=== PATIENT | female | born 1995 | race Caucasian/White ===

== ENCOUNTER 2016-10-29 00:23 | Emergency (ER) | payer MEDICAID ==
[2016-10-29 00:24] VITALS: BMI 24.6
[2016-10-29 01:01] VITALS: BP 122/77; PULSE 87; RESP 16; TEMP 99; O2SAT 98
--- NOTE | 2016-10-29 01:48 | ED PDOC ---
HPI: General Adult Time Seen by Provider: 10/29/16 01:00 Chief Complaint (Nursing): Flu-like Symptoms Chief Complaint (Provider): throat pain History Per: Patient History/Exam Limitations: no limitations Onset/Duration Of Symptoms: Days Have you had recent travel within the past 21 days to any of the following countries: [place], [place], [place] or [place]?: No Current Symptoms Are (Timing): Still Present Additional Complaint(s): 21yo female with no PMHx presents to the ED with c/o throat pain x 5 days. Patient reports having associated cough . States she had a fever 3 days ago but none at present. Denies n/v/d or any other medical complaints. Past Medical History Reviewed: Historical Data, Nursing Documentation, Vital Signs Vital Signs: Last Vital Signs Temp 99.0 F 10/29/16 00:58 Pulse 87 10/29/16 00:58 Resp 16 10/29/16 00:58 BP 122/77 10/29/16 00:58 Pulse Ox 98 10/29/16 02:35 - Medical History PMH: No Chronic Diseases - Surgical History Surgical History: No Surg Hx - Family History Family History: States: No Known Family Hx - Social History Current smoker - smoking cessation education provided: No Alcohol: Occasional Drugs: Denies - Home Medications Home Medications: Ambulatory Orders Medication Instructions Recorded Amoxicillin 500 mg PO BID #14 tablet 10/29/16 - Allergies Allergies/Adverse Reactions: Allergies Allergy/AdvReac Type Severity Reaction Status Date / Time No Known Allergies Allergy Verified 01/23/15 10:26 Review of Systems ROS Statement: Except As Marked, All Systems Reviewed And Found Negative Constitutional: Positive for: Fever (none at present ) ENT: Positive for: Throat Pain Respiratory: Positive for: Cough Gastrointestinal: Negative for: Nausea, Vomiting, Diarrhea Musculoskeletal: Positive for: Back Pain Physical Exam - Reviewed Nursing Documentation Reviewed: Yes Vital Signs Reviewed: Yes - Physical Exam Appears: Positive for: Well, No Acute Distress Head Exam: Positive for: ATRAUMATIC, NORMAL INSPECTION, NORMOCEPHALIC Skin: Positive for: Normal Color, Warm, Dry Eye Exam: Positive for: Normal appearance, EOMI, PERRL ENT: Positive for: Tonsillar Exudate (right sided ). Negative for: Pharyngeal Erythema, Tonsillar Swelling Neck: Positive for: Normal, Painless ROM, Supple Cardiovascular/Chest: Positive for: Regular Rate, Rhythm. Negative for: Murmur , Tachycardia Respiratory: Positive for: Normal Breath Sounds. Negative for: Wheezing, Respiratory Distress Gastrointestinal/Abdominal: Positive for: Normal Exam, Soft. Negative for: Tenderness Back: Positive for: Normal Inspection. Negative for: L CVA Tenderness, R CVA Tenderness Extremity: Positive for: Normal ROM. Negative for: Deformity, Swelling Neurologic/Psych: Positive for: Alert, Oriented - ECG O2 Sat by Pulse Oximetry: 98 Pulse Ox Interpretation: Normal (RA) Medical Decision Making Medical Decision Makin: Impression: throat pain, r/o strep vs. flu Plan: Motrin 600mg PO flu and strep swabs reassess 0230: Flu and strep swabs are negative. Patient is stable for discharge with diagnosis of viral illness. Advised Motrin for pain. Instructed patient to f/u w / her PCP in 1-2 days and return to the ED with any worsening or concerning symptoms. Patient given Rx for antibiotics in case symptoms worsen. Scribe Attestation: Documented by Megha Stock acting as a scribe for Jeanette Jones MD. Provider Scribe Attestation: All medical record entries made by the Scribe were at my direction and personally dictated by me. I have reviewed the chart and agree that the record accurately reflects my personal performance of the history, physical exam, medical decision making, and the department course for this patient. I have also personally directed, reviewed, and agree with the discharge instructions and disposition. Disposition - Clinical Impression Clinical Impression: Viral illness - Patient ED Disposition Is Patient to be Admitted: No Counseled Patient/Family Regarding: Studies Performed, Diagnosis, Need For Followup - Disposition Referrals: Nathaniel Manzano MD [Primary Care Provider] - Disposition: Routine/Home Disposition Time: 02:00 Condition: IMPROVED Additional Instructions: follow up with your primary doctor in 1-2 days take motrin for pain return to the ED with any worsening or concerning symptoms Prescriptions: Amoxicillin 500 mg PO BID #14 tablet Instructions: Viral Syndrome (ED)
== END 2016-10-29 02:38 | disposition home or self-care (01) ==
LOC: H.ER 00:23
DX: B34.9 Viral infection, unspecified (principal)

== ENCOUNTER 2017-12-03 09:42 | Emergency (ER) | payer MEDICAID, OTHER ==
[2017-12-03 09:52] VITALS: BMI 22.2
[2017-12-03 09:53] VITALS: O2SAT 100
[2017-12-03 10:38] VITALS: PULSE 83
[2017-12-03] MEDS ORDERED: Famotidine 20mg/50ml 20 MG/50 ML BAG IVPB ONE ×2 (10:45→11:05)
[2017-12-03 11:06] LABS: BASO % 0.5 % (0.0-2.0); EOS % 0.5 % (0.0-4.0); HEMOGLOBIN 14.1 g/dL (12.0-16.0); LYMPH # 1.6 K/uL (1.0-4.3); LYMPH % 18.5 % (20.0-40.0); MEAN CELL VOLUME 83.4 fl (81.0-99.0); MEAN CORPUSCULAR HGB CONC 33.6 g/dL (33.0-37.0); MEAN PLATELET VOLUME 9.2 fl (7.2-11.7); MONO # 0.5 K/uL (0.0-0.8); MONO % 6.3 % (0.0-10.0); NEUT # 6.4 K/uL (1.8-7.0); NEUT % 74.2 % (50.0-75.0); NRBC % 0.1 % (0.0-0.0); RBC 5.04 Mil/uL (3.80-5.20); WHITE BLOOD COUNT 8.6 K/uL (4.8-10.8)
[2017-12-03 11:18] LABS: ALB/GLOB RATIO 1.5 (1.0-2.1); ALBUMIN 4.8 g/dL (3.5-5.0); ALT/SGPT 16 U/L (9-52); AST/SGOT 23 U/L (14-36); BLOOD UREA NITROGEN 11 mg/dl (7-17); CALCIUM 9.8 mg/dL (8.4-10.2); GFR AFRICAN-AMERICAN > 60; GFR NON-AFRICAN AMERICAN > 60; LIPASE 113 U/L (23-300)
--- NOTE | 2017-12-03 11:54 | ED PDOC ---
HPI: Abdomen Time Seen by Provider: 12/03/17 10:07 Chief Complaint (Nursing): Abdominal Pain Chief Complaint (Provider): abdominal pain History Per: Patient History/Exam Limitations: no limitations Onset/Duration Of Symptoms: Days (x3), Waxing/Waning Outside of [place] travel?: No Current Symptoms Are (Timing): Still Present Quality Of Discomfort: "Pain" Associated Symptoms: Chills, Nausea. denies: Fever, Vomiting, Diarrhea, Other ( SOB) Additional Complaint(s): Isela Jimenez is a 22 year old female, with no significant past medical history, who presents to the emergency department complaining of abdominal pain associated with nausea and chills onset for x3 days and chest pain onset since yesterday. Patient states abdominal pain waxes and wanes, and has currently resolved. However, patient states she developed left sided chest pain right after having lunch yesterday. She reports today pain has moved to the center. She denies similar chest pain in the past. She is not taking control and denies recent travel. She denies any fever, headache, dizziness, vomit, diarrhea , shortness of breath, cough or heavy lifting. No further medical complaints. PMD: Nathaniel Sanchez Past Medical History Reviewed: Historical Data, Nursing Documentation, Vital Signs Vital Signs: Last Vital Signs Temp 98.6 F 12/03/17 09:52 Pulse 83 12/03/17 10:05 Resp 21 12/03/17 10:05 BP 115/77 12/03/17 09:52 Pulse Ox 100 12/03/17 13:17 - Medical History PMH: No Chronic Diseases - Surgical History Surgical History: No Surg Hx - Family History Family History: States: Unknown Family Hx - Social History Current smoker - smoking cessation education provided: No Alcohol: None Drugs: Denies - Home Medications Home Medications: Ambulatory Orders Medication Instructions Recorded Famotidine [Pepcid] 20 mg PO DAILY #14 tab 12/03/17 - Allergies Allergies/Adverse Reactions: Allergies Allergy/AdvReac Type Severity Reaction Status Date / Time No Known Allergies Allergy Verified 01/23/15 10:26 Review of Systems ROS Statement: Except As Marked, All Systems Reviewed And Found Negative Constitutional: Positive for: Chills. Negative for: Fever Cardiovascular: Positive for: Chest Pain Respiratory: Negative for: Cough, Shortness of Breath Gastrointestinal: Positive for: Nausea, Abdominal Pain (resolved). Negative for : Vomiting, Diarrhea Physical Exam - Reviewed Nursing Documentation Reviewed: Yes Vital Signs Reviewed: Yes - Physical Exam Appears: Positive for: Non-toxic, No Acute Distress Head Exam: Positive for: ATRAUMATIC, NORMOCEPHALIC Skin: Positive for: Normal Color, Warm, Dry Eye Exam: Positive for: Normal appearance, EOMI, PERRL Neck: Positive for: Painless ROM, Supple Cardiovascular/Chest: Positive for: Regular Rate, Rhythm. Negative for: Chest Non Tender (Chest wall sternum tenderness), Murmur Respiratory: Positive for: Normal Breath Sounds. Negative for: Respiratory Distress Gastrointestinal/Abdominal: Positive for: Normal Exam, Soft. Negative for: Tenderness, Guarding Back: Negative for: L CVA Tenderness, R CVA Tenderness, Vertebral Tenderness Extremity: Positive for: Normal ROM (upper and lower extremities). Negative for : Tenderness, Deformity, Swelling Neurologic/Psych: Positive for: Alert, Oriented. Negative for: Motor/Sensory Deficits - Laboratory Results Result Diagrams: 12/03/17 11:02 12/03/17 11:02 - ECG ECG Rhythm: Positive for: Normal QRS, Normal ST Segment, Sinus Rhythm. Negative for: ST/T Changes Rate: 83 O2 Sat by Pulse Oximetry: 100 (RA) Pulse Ox Interpretation: Normal - Radiology X-Ray: Interpreted by Me, Viewed By Me X-Ray Interpretation: No Acute Disease Medical Decision Making Medical Decision Making: Time: 10:07 Initial Impression: chest pain and abdominal pain resolved. Differential includes but not limited to ACS, esophagitis, costochondritis, GERD, and also considered gastritis Initial Plan: --EKG --BMP --CMP --Lipase --Troponin I --Urine --Urine dipstick --CBC w/ differential --Chest two views (PA/LAT) [RAD] --Pepcid 20 mg/50 ml Premix IVPB --Toradol 15 mg IVP --Reevaluation 11:50 -CXR showed no significant abnormalities, read by me. 13:10 -Patient reports feeling better, has no pain. Patient advised to follow up with PMD. ----- Scribe Attestation: Documented by Cuong Wright, acting as a scribe for Vincent Luther MD. Provider Scribe Attestation: All medical record entries made by the Scribe were at my direction and personally dictated by me. I have reviewed the chart and agree that the record accurately reflects my personal performance of the history, physical exam, medical decision making, and the department course for this patient. I have also personally directed, reviewed, and agree with the discharge instructions and disposition. Disposition - Clinical Impression Clinical Impression: Chest pain, Abdominal pain - Patient ED Disposition Is Patient to be Admitted: No Doctor Will See Patient In The: Office Counseled Patient/Family Regarding: Studies Performed, Diagnosis, Need For Followup - Disposition Referrals: [facility] [Outside] Bobby Dao MD [Medical Doctor] - Disposition: Routine/Home Disposition Time: 13:25 Condition: GOOD Additional Instructions: Follow up with your PCP in 2-3 days. Prescriptions: Famotidine [Pepcid] 20 mg PO DAILY #14 tab Instructions: Chest Pain (DC)
[2017-12-03 13:35] VITALS: BP 118/70; RESP 15; TEMP 97.2
--- NOTE | 2017-12-03 15:00 | RAD ---
HISTORY: chest pain COMPARISON: No prior. TECHNIQUE: Chest PA and lateral FINDINGS: LUNGS: No active pulmonary disease. PLEURA: No significant pleural effusion identified. No pneumothorax apparent. CARDIOVASCULAR: Normal. OSSEOUS STRUCTURES: No significant abnormalities. VISUALIZED UPPER ABDOMEN: Normal. OTHER FINDINGS: None. IMPRESSION: No active disease.
--- NOTE | 2017-12-05 11:13 | CARD ---
APPROVED REPORT EKG Measurement Heart [id number] <Conclusion> Normal sinus rhythm Normal ECG
== END 2017-12-03 13:30 | disposition home or self-care (01) ==
LOC: H.ER 09:42
DX: R07.89 Other chest pain (principal); R10.9 Unspecified abdominal pain
CPT/HCPCS: 71046; 80053; 81025; 83690; 84484; 85025; 93005; 96365; 96375; 99283; J1885